=== PATIENT | male | born 2000 ===

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

== ENCOUNTER 2021-05-09 17:03 | Emergency (ER) | payer OTHER ==
[2021-05-09 17:29] LABS: HEMOGLOBIN 17.4 gm/dl (14.0-17.5); RED BLOOD COUNT 5.4 M/UL (4.20-5.50); WHITE BLOOD COUNT 7.4 K/UL (4.5-11.0)
[2021-05-09 17:55] LABS: BUN/CREATININE RATIO 10 (0-10)
== END 2021-05-09 19:01 | disposition home or self-care (01) ==
LOC: ER1 17:03
PROVIDERS: Physician Assistant
DX: R10.9 Unspecified abdominal pain (principal); R11.0 Nausea; R31.9 Hematuria, unspecified
CPT/HCPCS: 80053; 81001; 83690; 85025; 96374; 96375; 96376; 99284; J2270; J2405